=== PATIENT | male | born 1975 | race African-American/Black ===

== ENCOUNTER 2023-02-17 11:21 | Emergency (ER) | payer SELFPAY ==
[~2023-02-17] VITALS: Ht 182.9 cm; Wt 82.0 kg
[2023-02-17 12:57] VITALS: BP 136/57
== END 2023-02-17 14:28 | disposition left against medical advice (07) ==
LOC: ER 12:08
DX: Z53.21 Procedure and treatment not carried out due to patient leaving prior to being seen by health care provider (principal)
CPT/HCPCS: 99281

== ENCOUNTER 2023-03-20 09:02 | Emergency (ER) | payer MEDICAID ==
[~2023-03-20] VITALS: Ht 172.7 cm; Wt 80.0 kg
[2023-03-20 09:30] VITALS: BP 113/72
[2023-03-20] MEDS ORDERED: KETOROLAC 15MG/ML VIAL IV NR (09:30)
[2023-03-20] MEDS ORDERED: SODIUM CHLORIDE 0.9% 1,000 ML IV ONE (09:30)
[2023-03-20 09:38] LABS: BASOPHILS % 0.4 % (0.0-2.0); EOSINOPHILS % 6.1 % (0.0-5.0); HEMATOCRIT. 41.4 % (42.0-52.0); HEMOGLOBIN. 13.8 g/dL (14.0-18.0); LYMPHOCYTES % 47.3 % (20.0-50.0); MEAN CORPUSCULAR HEMOGLOBIN 29.2 pg (28.0-32.0); MEAN CORPUSCULAR VOLUME 87.4 fL (80.0-94.0); MEAN PLATELET VOLUME 8.1 fl (7.4-10.4); MONOCYTES % 9.5 % (2.0-8.0); NEUTROPHILS % 36.7 % (40.0-76.0); PLATELET 258 x1000/uL (130-400); RED BLOOD CELL COUNT 4.74 mill/uL (4.7-6.1); RED CELL DISTRIBUTION WIDTH 13.8 % (11.6-14.6)
[2023-03-20] MEDS ORDERED: ONDANSETRON HCL 4MG/2ML INJ IV NR (09:45)
[2023-03-20 09:46] LABS: CHLORIDE 106 mEq/L (98-107)
[2023-03-20 10:03] LABS: CLARITY URINE CLEAR (CLEAR); COLOR URINE YELLOW (YELLOW); KETONES URINE NEGATIVE (NEGATIVE); LEUKOCYTE ESTERASE URINE NEGATIVE (NEGATIVE); NITRITE URINE NEGATIVE (NEGATIVE); OCCULT BLOOD URINE 1+ (NEGATIVE); PROTEIN URINE NEGATIVE (NEGATIVE); UROBILINOGEN URINE 0.2 E.U./dL (0.2-1.0)
[2023-03-20] MEDS ORDERED: ACET-2708 MT (12:40)
== END 2023-03-20 14:03 | disposition home or self-care (01) ==
LOC: ER 09:30
DX: N50.812 Left testicular pain (principal); N50.811 Right testicular pain; E78.00 Pure hypercholesterolemia, unspecified; Z11.3 Encounter for screening for infections with a predominantly sexual mode of transmission
CPT/HCPCS: 36415; 74176; 76870; 80053; 81003; 85025; 87591; 93976; 96361; 96374; 96375; 99285; J1885; J2405; Z7610

== ENCOUNTER 2023-07-17 10:15 | Emergency (ER) | payer MEDICAID ==
[~2023-07-17] VITALS: Ht 172.7 cm; Wt 80.0 kg
[~2023-07-17 10:15] MED LIST: ACET-2708 MT
[2023-07-17 10:26] VITALS: O2SAT 99
[2023-07-17] MEDS ORDERED: NAPR-681 MT (11:51)
[2023-07-17] MEDS ORDERED: LIDO700A15 TP (11:51)
[2023-07-17] MEDS ORDERED: KETOROLAC 30MG/ML VIAL IM ONE (12:00)
[2023-07-17 13:11] VITALS: BP 132/84; PULSE 67; RESP 18; TEMP 98.1
== END 2023-07-17 13:12 | disposition home or self-care (01) ==
LOC: ER 10:15
DX: S29.012A Strain of muscle and tendon of back wall of thorax, initial encounter (principal); E78.00 Pure hypercholesterolemia, unspecified; X58.XXXA Exposure to other specified factors, initial encounter; Y93.89 Activity, other specified; Y92.89 Other specified places as the place of occurrence of the external cause; Y99.8 Other external cause status
CPT/HCPCS: 99283; 96372; J1885

== ENCOUNTER 2023-07-20 09:10 | Emergency (ER) | payer MEDICAID ==
[~2023-07-20] VITALS: Ht 182.9 cm; Wt 80.0 kg
[~2023-07-20 09:10] MED LIST changes: +LIDO700A15 TP; +NAPR-681 MT
[2023-07-20 09:20] VITALS: BP 134/80; O2SAT 99
[2023-07-20 09:25] VITALS: PULSE 87; RESP 20
[2023-07-20 10:41] VITALS: TEMP 98.6
[2023-07-20] MEDS ORDERED: ACETAMINOPHEN 325MG TABLET PO STA (10:41)
== END 2023-07-20 12:09 | disposition left against medical advice (07) ==
LOC: ER 09:41
DX: J02.9 Acute pharyngitis, unspecified (principal); Z20.822 Contact with and (suspected) exposure to COVID-19
CPT/HCPCS: 99283; 87426; 87430; 87070; C9803